=== PATIENT | male | born 1940 | race Caucasian/White ===

== ENCOUNTER → 2017-07-04 | Outpatient (CLI) | payer OTHER ==
[~2017-07-04] MED LIST: ACYCLOVIR 200200 MG PO; ALDACTONE25 MG; ALLOPURINOL 30300 M2 PO; AMARYL2 MG PO; ANALGESIC325 MG PO; ANTIVERT25 MG PO; ASACOL HD800 MG PO; ASACOL400 MG PO; CLARITIN10 MG PO; CLONAZEPAM 1 MG1 M1 PO; COLACE100 MG; DEMADEX20 MG PO; DIFFERIN45 G1 TP; FAMOTIDINE40 MG PO; FISH OIL500 M1 PO; FLONASE; FUROSEMIDE 20 M20 M1; GLUCOSAMINE &1 EACH PO; HYTRIN10 MG PO; JANUVIA100 MG PO; KLOR-CON 10 ER10 MEQ; KLOR-CON 1010 MEQ PO; LEVOXYL100 MCG PO; LISINOPRIL40 MG PO; MIRAPEX0.25 MG PO; MIRAPEX0.5 MG; MULTIVITAMINS1 EAC7; OMEPRAZOLE20 MG PO; OXYBUTYNIN 5 MG5 M2 PO; TOPROL XL200 MG PO; TRAMADOL 50 MG50 MG PO; TRAZODONE HCL100 MG PO; TRICOR145 MG PO; TRULICITY0.75 MG/0.; TYLENOL EX-STR500 M1 PO; VITAMIN D-32000 UNIT PO; VITAMIN D400 UNI1; ZOCOR 20 MG TAB20 M1 PO; ZOCOR20 MG PO; ZOLOFT100 MG PO; ZPAK PO
[2017-07-04 15:56] LABS: HEMATOCRIT 36.6 % (42.0-52.0); HEMOGLOBIN 12.3 gm/dL (14.0-18.0); MCH 33.2 pg (26.0-34.0); MCHC 33.6 g/dL (28.0-37.0); MCV 98.8 fL (80.0-100.0); RBC 3.7 mil/uL (4.50-6.00); RDW 15.8 % (10.5-14.5); WBC 6.9 thou/uL (4.0-11.0)
[2017-07-04 16:07] LABS: CALCIUM 9.1 mg/dL (8.5-10.1); CREATININE 2.1 mg/dL (0.7-1.3)
[2017-07-04 16:13] LABS: ALBUMIN 3.5 g/dL (3.4-5.0); TOTAL BILIRUBIN 0.3 mg/dL (<0.1-1.0); TOTAL PROTEIN 7.5 g/dL (6.4-8.2)
== END ==
LOC: LABMALL 15:22 → RAD 15:22
PROVIDERS: Internal Medicine Pulmonary Disease
DX: I51.7 Cardiomegaly (principal); J44.9 Chronic obstructive pulmonary disease, unspecified; J98.4 Other disorders of lung

== ENCOUNTER → 2017-07-06 | Outpatient (CLI) | payer OTHER | LOC: NUC 11:14 | DX: R07.9 Chest pain, unspecified (principal); R06.02 Shortness of breath; R06.00 Dyspnea, unspecified ==

== ENCOUNTER 2017-12-27 11:21 | Inpatient (IN) | payer OTHER ==
[~2017-12-27] VITALS: Ht 180.3 cm; Wt 145.1 kg
--- NOTE | ~2017-12-27 | HC ---
[facility] [place] [address] CONSULTATION Name: CHRISTIBEHZADHortencia Balderrama Room #: 416-P ADM IN M.R.#: [id number] Admission: 12/27/17 Attend Phys: Low Arnold DO Discharge: Date of : 38 Report #: [id number] THIS REPORT FOR: //name// CC: Low COLLADO INFECTIOUS DISEASES CONSULTATION REASON FOR CONSULTATION: Asked to evaluate concerning left lower extremity cellulitis. HISTORY OF PRESENT ILLNESS: The patient is a 77-year-old with underlying coronary artery disease, diabetes and venous stasis disease. He also has obstructive sleep apnea. He had been treated at the wound center for lower extremity venous stasis ulcers. Left side was worse than the right. Placed on doxycycline, but did not improve. He has been on diuretics, but still has not improved and was hospitalized for further treatment. No fever, chills or sweats. Increased pain in the left lower extremity. He has had no specific injury. He has underlying diabetes. ALLERGIES: MORPHINE AND CODEINE. MEDICATIONS: As noted on his MAR, now on vancomycin. Prior to his admission, he was on Asacol, Demadex, levothyroxine, clonazepam, Januvia, trazodone, allopurinol, Amaryl, potassium, Claritin, aspirin, TriCor, Hytrin, Zestril, Mirapex, Zoloft. PAST MEDICAL HISTORY: Hypertension, COPD, diabetes, coronary artery disease, vertebral disk disease, bilateral total knee arthroplasties, cataract surgery, hypothyroidism, restless legs syndrome, anxiety, colitis, emphysema, obstructive sleep apnea, liver abscess, tonsillectomy, hyperlipidemia. FAMILY HISTORY: Noncontributory. SOCIAL HISTORY: Past smoker and no significant alcohol intake. 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 REVIEW OF SYSTEMS: No cough or sputum production. No chest pain. No nausea, vomiting, diarrhea, dysuria or frequency. PHYSICAL EXAMINATION: VITAL SIGNS: Afebrile, hemodynamically stable. GENERAL: Alert, cooperative and pleasant, in no acute distress. Obese. HEENT: Unremarkable. CHEST: Clear. HEART: Regular, without murmur. ABDOMEN: Obese, soft, nontender, no hepatosplenomegaly or mass. [facility] [address] [place] [address] CONSULTATION Name: ROBBINLUCIOREMBERTOGIRISH WEAVER Room #: 416-P [facility] IN .R.#: [id number] Admission: 12/27/17 Attend Phys: Low Arnold DO Discharge: Date of : 38 Report #: [id number] EXTREMITIES: 2+ lower extremity edema with venous stasis changes along with erythema, pretibial skin ulcerations predominantly on the left leg. Serous drainage. Significant pretibial tenderness. Pulses adequate in his feet. NEUROLOGIC: Nonfocal. LABORATORY DATA: BNP 274. Sedimentation rate 29. Sodium 141, potassium 4.2, bicarb at 31, creatinine 2.3. Liver function test normal. Hemoglobin 12; platelet count 232,000; WBC 6.6; 68% segs; 12% lymphs. Chest x-ray, no acute change. IMPRESSION: A 77-year-old with venous stasis disease of both lower extremities, now with venous stasis dermatitis and ulcerations associated with secondary bacterial infection. Also, has chronic renal failure with a creatinine of 2.3. RECOMMENDATIONS: We will continue with cefazolin adjusted for his renal failure. Elevate along with mild compression. Continue with diuretics. Reevaluate wound in the a.m. <ELECTRONICALLY SIGNED> By: Pavel Trevino MD 12/28/17 1603 25 0014 Pavel Trevino MD /nt
--- NOTE | ~2017-12-27 | HC ---
[facility] [place] [address] CONSULTATION Name: CHRISTIGIRISH Tacos Room #: 416-P ADM IN M.R.#: [id number] Admission: 12/27/17 Attend Phys: Low Arnold DO Discharge: Date of : 38 Report #: [id number] THIS REPORT FOR: //name// CC: Low [facility] DATE OF SERVICE: 12/28/2017 CHIEF COMPLAINT: Ulceration and cellulitis of left lower extremity. HISTORY OF PRESENT ILLNESS: This is a 77-year-old male patient who I saw yesterday in the outpatient clinic. He developed a blister on his left pretibial region and then subsequent posterior ruptured, he developed redness and swelling more proximally on his lower leg, but then it began to extend to his left thigh. It was felt that the cellulitis was advancing despite having been started on other course of oral doxycycline and therefore was admitted for further evaluation and treatment. The patient states that he believes he has also had some weight gain over the last several months and feels that he may be as much as 100 pounds overweight. He feels that a lot of it may be fluid related. He is followed by Dr. Ventura from cardiology perspective. PAST MEDICAL HISTORY: Includes hypertension, bilateral knee replacements, coronary artery disease, restless legs syndrome, diabetes, hypercholesterolemia, and possibly some history of congestive heart failure. SOCIAL HISTORY: The patient denies alcohol use. He is a previous smoker, having quit sometime in the past. No drug use. MEDICATIONS: Include Asacol, Demadex, Levoxyl, clonazepam, Januvia, Trulicity, Zyloprim, trazodone, Amaryl, Klor-Con and Claritin, aspirin, TriCor, Hytrin, Zestril, Mirapex, Zoloft. ALLERGIES: TO MORPHINE AND CODEINE. FAMILY HISTORY: Noncontributory. REVIEW OF SYSTEMS: CONSTITUTIONAL: The patient denies fever or chills. He denies weight loss, but he states he has had about 100-pound weight gain over the past several months. ENT: The patient denies earache, nasal drainage or sore throat. EYES: The patient denies visual changes, redness or drainage. PULMONARY: The patient does complain of mild shortness of breath, but denies cough or hemoptysis. GASTROINTESTINAL: The patient denies nausea, vomiting, diarrhea or abdominal pain. ORTHOPEDIC: The patient does complain of pain in his left lower extremity and [address] [address] CONSULTATION Name: GIRISH BARRAZA Tacos Room #: 416-P [facility] IN ..#: [id number] Admission: 12/27/17 Attend Phys: Low Arnold DO Discharge: Date of : 38 Report #: [id number] left thigh. Other systems in a 14-point review of systems are negative. PHYSICAL EXAMINATION: VITAL SIGNS: At this time include pulse rate of 59, respiratory rate 16, blood pressure 155/69, temperature 99.5. GENERAL: This is a somewhat chronically ill-appearing male patient who appears to be in minimal distress. HEAD: Normocephalic. NOSE: Clear. NECK: Supple. LUNGS: Diminished. HEART: Regular rhythm. ABDOMEN: Obese, distended, nontender. EXTREMITIES: Lower extremities demonstrate venous type dermatitis with hyperpigmentation and hemosiderin deposits to both lower legs. He has a blister on the left pretibial area. This area is covered with moderate fibrin although is improved since yesterday. The redness that was above his knee is now below knee level, although still present, it is improved. NEUROLOGIC: The patient is alert and oriented and appropriate. LABORATORY DATA: Includes sodium 141, potassium 4.2, chloride 105, CO2 of 31, BUN 49, creatinine 2.3, glucose is 119, albumin is 3.2. White blood cell count 6.6, hemoglobin 12.1. Sed rate is 29. CLINICAL IMPRESSION: 1. Ulceration of the left pretibial region with a history of underlying venous insufficiency as well as a history of congestive heart failure. 2. Cellulitis, left lower extremity that is now improving. 3. Diabetes mellitus. 4. Mild protein-calorie malnutrition. RECOMMENDATIONS: At this point in time, we will continue with topical care. We will use topical Silvadene and lidocaine to the affected area with gentle compression with Kerlix and Salvador wrap. Try to elevate his legs whenever possible, although this is difficult for him. Appreciate Infectious Disease input and continue intravenous antibiotic therapy. We will continue all current medications. Recommend aggressive nutritional support to maximize wound healing. A culture has been obtained and results are pending from the open ulceration. <ELECTRONICALLY SIGNED> By: Alexandru Bryant MD 12/29/17 1454 1852 [id number] Alexandru Bryant MD /nt
[~2017-12-27 11:21] MED LIST changes: -ASACOL HD800 MG; -AUGMENTIN 875-1 EACH PO; -KEFLEX500 M1 PO
[2017-12-27 12:13] VITALS: BP 177/105
[2017-12-27] MEDS ORDERED: ASACOL HD800 MG (12:25)
[2017-12-27] MEDS ORDERED: DEMADEX20 MG PO (12:28)
[2017-12-27 13:14] LABS: ABSOLUTE NEUTROPHILS 4.5 thou/uL (1.4-8.2); BASOPHILS 1.6 % (0.0-2.0); EOSINOPHILS 8.1 % (0.0-3.0); HEMATOCRIT 37.1 % (42.0-52.0); HEMOGLOBIN 12.1 gm/dL (14.0-18.0); LYMPHOCYTES 12.7 % (24.0-44.0); MCHC 32.6 g/dL (28.0-37.0); MCV 101.1 fL (80.0-100.0); MONOCYTES 9.5 % (1.0-8.0); PLATELET COUNT 232 thou/uL (150-400); POLYS 68.1 % (36.0-66.0); RBC 3.67 mil/uL (4.50-6.00); RDW 15.7 % (10.5-14.5); WBC 6.6 thou/uL (4.0-11.0)
[2017-12-27 13:40] LABS: ALBUMIN 3.2 g/dL (3.4-5.0); ANION GAP 5 mmol/L (7-16); BUN 49 mg/dL (7-18); CALCIUM 9.6 mg/dL (8.5-10.1); CHLORIDE 105 mmol/L (98-107); CO2 31 mmol/L (21-32); CREATININE 2.3 mg/dL (0.7-1.3); GLUCOSE 119 mg/dL (74-106); MAGNESIUM 2.3 mg/dL (1.8-2.4); POTASSIUM 4.2 mmol/L (3.5-5.1); SGOT 16 U/L (15-37); SGPT 23 U/L (30-65); SODIUM 141 mmol/L (136-145); TOTAL BILIRUBIN 0.3 mg/dL (<0.1-1.0); TOTAL PROTEIN 7.1 g/dL (6.4-8.2); TROPONIN-I < 0.04 ng/mL (<0.06)
[2017-12-27 13:42] LABS: CHOLESTEROL 126 mg/dL (<200); HDL CHOLESTEROL 16 mg/dL (>40); LDL CHOLESTEROL 60 mg/dL (<100); TC:HDL 7.9 Ratio (Not establshd); TRIGLYCERIDE 251 mg/dL (<150); VLDL 50 mg/dL (<40)
[2017-12-27 14:05] LABS: FOLIC ACID 15.5 ng/mL (8.6-58.9); TSH 1.594 uIU/mL (0.358-3.740)
[2017-12-27 16:31] VITALS: BP 148/64
[2017-12-27 20:00] VITALS: BP 152/80
[2017-12-28 02:33] LABS: URINE BILIRUBIN NEGATIVE (Negative); URINE BLOOD NEGATIVE (Negative); URINE CLARITY CLEAR; URINE COLOR YELLOW; URINE GLUCOSE-RANDOM* NEGATIVE (Negative); URINE KETONES NEGATIVE (Negative); URINE LEUKOCYTES-REFLEX NEGATIVE (Negative); URINE NITRITE-REFLEX NEGATIVE (Negative); URINE PROTEIN (DIPSTICK) 1+ (Negative); URINE UROBILINOGEN 0.2 E.U./dl (0.2-1.0)
[2017-12-28 03:30] LABS: CASTS None Seen /LPF (None Seen); SQUAMOUS 0-3 Few /LPF (0-3)
[2017-12-28 03:31] LABS: BACTERIA-REFLEX None Seen /HPF (None Seen); CRYSTALS None Seen /LPF (None Seen); URINE RBC 0-2 Rare /HPF (0-2); URINE WBC-REFLEX 0-5 Rare /HPF (0-5)
[2017-12-28 04:00] VITALS: BP 144/70
[2017-12-28 07:33] VITALS: BP 155/69
[2017-12-28 16:28] VITALS: BP 159/71
[2017-12-28 19:25] VITALS: BP 155/72
[2017-12-29 04:00] VITALS: BP 136/95
[2017-12-29 04:30] LABS: ABSOLUTE NEUTROPHILS 4.2 thou/uL (1.4-8.2); BASOPHILS 1.2 % (0.0-2.0); EOSINOPHILS 9.3 % (0.0-3.0); HEMATOCRIT 35.2 % (42.0-52.0); HEMOGLOBIN 11.4 gm/dL (14.0-18.0); LYMPHOCYTES 14.1 % (24.0-44.0); MCH 33.3 pg (26.0-34.0); MCHC 32.6 g/dL (28.0-37.0); MCV 102.3 fL (80.0-100.0); MONOCYTES 9.5 % (1.0-8.0); PLATELET COUNT 228 thou/uL (150-400); POLYS 65.9 % (36.0-66.0); RBC 3.44 mil/uL (4.50-6.00); WBC 6.4 thou/uL (4.0-11.0)
[2017-12-29 04:40] LABS: CALCIUM 9.2 mg/dL (8.5-10.1); CREATININE 2.1 mg/dL (0.7-1.3)
[2017-12-29 07:47] VITALS: BP 125/71
[2017-12-29 16:00] VITALS: BP 141/47
[2017-12-29 20:00] VITALS: BP 147/64
[2017-12-30 03:46] LABS: ABSOLUTE NEUTROPHILS 4.7 thou/uL (1.4-8.2); BASOPHILS 1.3 % (0.0-2.0); EOSINOPHILS 7.7 % (0.0-3.0); HEMATOCRIT 37.3 % (42.0-52.0); HEMOGLOBIN 12.4 gm/dL (14.0-18.0); LYMPHOCYTES 15.9 % (24.0-44.0); MCH 33.2 pg (26.0-34.0); MCHC 33.3 g/dL (28.0-37.0); MONOCYTES 9.2 % (1.0-8.0); PLATELET COUNT 226 thou/uL (150-400); POLYS 65.9 % (36.0-66.0); RBC 3.73 mil/uL (4.50-6.00); RDW 15.7 % (10.5-14.5); WBC 7.2 thou/uL (4.0-11.0)
[2017-12-30 03:55] LABS: CALCIUM 9.4 mg/dL (8.5-10.1); POTASSIUM 4.3 mmol/L (3.5-5.1)
[2017-12-30 04:00] VITALS: BP 143/71
[2017-12-30 08:27] VITALS: BP 119/76
[2017-12-30 16:34] VITALS: BP 130/79
[2017-12-30 19:45] VITALS: BP 138/69
[2017-12-31 04:00] VITALS: BP 126/50
[2017-12-31 04:30] LABS: HEMATOCRIT 35.7 % (42.0-52.0); HEMOGLOBIN 11.8 gm/dL (14.0-18.0); MCH 33.2 pg (26.0-34.0); MCHC 33.1 g/dL (28.0-37.0); MCV 100.2 fL (80.0-100.0); RBC 3.56 mil/uL (4.50-6.00); RDW 16.1 % (10.5-14.5); WBC 7.5 thou/uL (4.0-11.0)
[2017-12-31 04:46] LABS: CALCIUM 9.7 mg/dL (8.5-10.1); CREATININE 2.3 mg/dL (0.7-1.3); POTASSIUM 4.2 mmol/L (3.5-5.1)
[2017-12-31 09:20] VITALS: BP 119/60
[2017-12-31] MEDS ORDERED: KEFLEX500 M1 PO (11:21)
[2017-12-31 12:29] VITALS: BP 119/60
[2017-12-31 15:56] VITALS: BP 119/60
[2018-01-16] MEDS ORDERED: AUGMENTIN 875-1 EACH PO (15:19)
== END 2017-12-31 17:40 | disposition home health service (06) | DRG 602 ==
LOC: 4N 11:21
PROVIDERS: Family Medicine; Hospitalist; Nurse Practitioner
DX: L03.116 Cellulitis of left lower limb (principal); J96.20 Acute and chronic respiratory failure, unspecified whether with hypoxia or hypercapnia; N18.4 Chronic kidney disease, stage 4 (severe); L97.829 Non-pressure chronic ulcer of other part of left lower leg with unspecified severity; E44.1 Mild protein-calorie malnutrition; Z68.41 Body mass index [BMI] 40.0-44.9, adult; I13.0 Hypertensive heart and chronic kidney disease with heart failure and stage 1 through stage 4 chronic kidney disease, or unspecified chronic kidney disease; J44.9 Chronic obstructive pulmonary disease, unspecified; I25.10 Atherosclerotic heart disease of native coronary artery without angina pectoris; Z96.653 Presence of artificial knee joint, bilateral; F41.9 Anxiety disorder, unspecified; G47.33 Obstructive sleep apnea (adult) (pediatric); E78.5 Hyperlipidemia, unspecified; I87.2 Venous insufficiency (chronic) (peripheral); G25.81 Restless legs syndrome; E78.00 Pure hypercholesterolemia, unspecified; I50.9 Heart failure, unspecified; K58.9 Irritable bowel syndrome, unspecified; E11.22 Type 2 diabetes mellitus with diabetic chronic kidney disease; Z66 Do not resuscitate; Z79.82 Long term (current) use of aspirin; Z88.6 Allergy status to analgesic agent; Z98.49 Cataract extraction status, unspecified eye; Z87.891 Personal history of nicotine dependence; Z95.5 Presence of coronary angioplasty implant and graft; Z79.899 Other long term (current) drug therapy
CPT/HCPCS: 10790

== ENCOUNTER → 2017-12-27 | Outpatient (CLI) | payer OTHER ==
[~2017-12-27] MED LIST changes: +ASACOL HD800 MG; +AUGMENTIN 875-1 EACH PO; +KEFLEX500 M1 PO
== END ==
LOC: HYPER 06:48
DX: I87.333 Chronic venous hypertension (idiopathic) with ulcer and inflammation of bilateral lower extremity (principal); L97.811 Non-pressure chronic ulcer of other part of right lower leg limited to breakdown of skin; L97.821 Non-pressure chronic ulcer of other part of left lower leg limited to breakdown of skin; I25.84 Coronary atherosclerosis due to calcified coronary lesion; J44.9 Chronic obstructive pulmonary disease, unspecified; I25.10 Atherosclerotic heart disease of native coronary artery without angina pectoris; Z95.0 Presence of cardiac pacemaker; Z87.891 Personal history of nicotine dependence; Z72.89 Other problems related to lifestyle; E66.01 Morbid (severe) obesity due to excess calories; Z68.41 Body mass index [BMI] 40.0-44.9, adult

== ENCOUNTER → 2018-01-09 | Outpatient (CLI) | payer OTHER ==
[~2018-01-09] MED LIST changes: +ASACOL HD800 MG; +AUGMENTIN 875-1 EACH PO; +KEFLEX500 M1 PO
== END ==
LOC: HYPER 06:51
DX: I87.333 Chronic venous hypertension (idiopathic) with ulcer and inflammation of bilateral lower extremity (principal); L97.811 Non-pressure chronic ulcer of other part of right lower leg limited to breakdown of skin; L97.821 Non-pressure chronic ulcer of other part of left lower leg limited to breakdown of skin; E66.01 Morbid (severe) obesity due to excess calories; I25.84 Coronary atherosclerosis due to calcified coronary lesion; R60.0 Localized edema; J44.9 Chronic obstructive pulmonary disease, unspecified; I25.10 Atherosclerotic heart disease of native coronary artery without angina pectoris; Z95.0 Presence of cardiac pacemaker; Z87.891 Personal history of nicotine dependence; Z72.89 Other problems related to lifestyle

== ENCOUNTER 2018-01-19 09:13 | Emergency (ER) | payer OTHER ==
[~2018-01-19] VITALS: Ht 182.9 cm; Wt 141.1 kg
--- NOTE | ~2018-01-19 | EKG ---
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
[2018-01-19 09:31] LABS: ABSOLUTE NEUTROPHILS 5.4 thou/uL (1.4-8.2); BASOPHILS 1.2 % (0.0-2.0); EOSINOPHILS 8.4 % (0.0-3.0); HEMATOCRIT 36.1 % (42.0-52.0); HEMOGLOBIN 12.1 gm/dL (14.0-18.0); LYMPHOCYTES 11.6 % (24.0-44.0); MCH 33.3 pg (26.0-34.0); MCHC 33.5 g/dL (28.0-37.0); MCV 99.4 fL (80.0-100.0); MONOCYTES 10.4 % (1.0-8.0); PLATELET COUNT 271 thou/uL (150-400); POLYS 68.4 % (36.0-66.0); RBC 3.63 mil/uL (4.50-6.00); RDW 15.3 % (10.5-14.5); WBC 7.9 thou/uL (4.0-11.0)
[2018-01-19 09:35] LABS: ANION GAP 6 mmol/L (7-16); BUN 29 mg/dL (7-18); CALCIUM 9.5 mg/dL (8.5-10.1); CHLORIDE 108 mmol/L (98-107); CO2 26 mmol/L (21-32); CREATININE 1.6 mg/dL (0.7-1.3); GLUCOSE 133 mg/dL (74-106); POTASSIUM 4.7 mmol/L (3.5-5.1); SODIUM 140 mmol/L (136-145)
[2018-01-19 09:38] LABS: BE(vivo) -1.7 mmol/L (-2 to +3); PCO2 38.7 mmHg (35.0-45.0); PO2 70.9 mmHg (80.0-100.0); pH 7.391 (7.360-7.450); sO2 94.2 % (92.0-98.0)
[2018-01-19 09:43] LABS: TROPONIN-I < 0.04 ng/mL (<0.06)
== END 2018-01-19 11:43 | disposition home or self-care (01) ==
LOC: ER 09:13
PROVIDERS: Emergency Medicine
DX: R06.00 Dyspnea, unspecified (principal); F41.9 Anxiety disorder, unspecified; I13.0 Hypertensive heart and chronic kidney disease with heart failure and stage 1 through stage 4 chronic kidney disease, or unspecified chronic kidney disease; I50.9 Heart failure, unspecified; E03.9 Hypothyroidism, unspecified; G25.81 Restless legs syndrome; G47.33 Obstructive sleep apnea (adult) (pediatric); J44.9 Chronic obstructive pulmonary disease, unspecified; E11.22 Type 2 diabetes mellitus with diabetic chronic kidney disease; N18.4 Chronic kidney disease, stage 4 (severe); E78.00 Pure hypercholesterolemia, unspecified; M10.9 Gout, unspecified; Z88.5 Allergy status to narcotic agent; Z96.653 Presence of artificial knee joint, bilateral; Z90.89 Acquired absence of other organs; Z87.891 Personal history of nicotine dependence

== ENCOUNTER → 2018-01-24 | Outpatient (CLI) | payer OTHER | LOC: HYPER 07:05 | DX: I87.333 Chronic venous hypertension (idiopathic) with ulcer and inflammation of bilateral lower extremity (principal); L97.811 Non-pressure chronic ulcer of other part of right lower leg limited to breakdown of skin; L97.821 Non-pressure chronic ulcer of other part of left lower leg limited to breakdown of skin; Z68.41 Body mass index [BMI] 40.0-44.9, adult; I25.84 Coronary atherosclerosis due to calcified coronary lesion; R60.0 Localized edema; J44.9 Chronic obstructive pulmonary disease, unspecified; I25.10 Atherosclerotic heart disease of native coronary artery without angina pectoris; Z95.0 Presence of cardiac pacemaker; Z87.891 Personal history of nicotine dependence ==

== ENCOUNTER → 2018-03-12 | Outpatient (CLI) | payer OTHER | LOC: HYPER 06:45 | DX: I87.323 Chronic venous hypertension (idiopathic) with inflammation of bilateral lower extremity (principal); L97.811 Non-pressure chronic ulcer of other part of right lower leg limited to breakdown of skin; L97.821 Non-pressure chronic ulcer of other part of left lower leg limited to breakdown of skin; R60.0 Localized edema; I25.84 Coronary atherosclerosis due to calcified coronary lesion; J44.9 Chronic obstructive pulmonary disease, unspecified; E66.01 Morbid (severe) obesity due to excess calories; Z68.41 Body mass index [BMI] 40.0-44.9, adult; Z87.891 Personal history of nicotine dependence ==

== ENCOUNTER → 2018-08-06 | Outpatient (CLI) | payer OTHER | LOC: HYPER 07:00 | DX: I87.332 Chronic venous hypertension (idiopathic) with ulcer and inflammation of left lower extremity (principal); L97.821 Non-pressure chronic ulcer of other part of left lower leg limited to breakdown of skin; I25.10 Atherosclerotic heart disease of native coronary artery without angina pectoris; J44.9 Chronic obstructive pulmonary disease, unspecified; F41.9 Anxiety disorder, unspecified; F32.9 Major depressive disorder, single episode, unspecified; Z96.653 Presence of artificial knee joint, bilateral; Z95.0 Presence of cardiac pacemaker; Z87.891 Personal history of nicotine dependence ==

== ENCOUNTER → 2018-08-20 | Outpatient (CLI) | payer OTHER | LOC: HYPER 06:53 | DX: I87.332 Chronic venous hypertension (idiopathic) with ulcer and inflammation of left lower extremity (principal); L97.821 Non-pressure chronic ulcer of other part of left lower leg limited to breakdown of skin; I25.10 Atherosclerotic heart disease of native coronary artery without angina pectoris; J44.9 Chronic obstructive pulmonary disease, unspecified; K21.9 Gastro-esophageal reflux disease without esophagitis; M10.9 Gout, unspecified; F41.9 Anxiety disorder, unspecified; F32.9 Major depressive disorder, single episode, unspecified; Z87.891 Personal history of nicotine dependence; Z96.653 Presence of artificial knee joint, bilateral; Z98.41 Cataract extraction status, right eye; Z98.42 Cataract extraction status, left eye; Z95.0 Presence of cardiac pacemaker ==

== ENCOUNTER → 2018-09-03 | Outpatient (CLI) | payer OTHER | LOC: HYPER 07:34 | DX: I87.332 Chronic venous hypertension (idiopathic) with ulcer and inflammation of left lower extremity (principal); L97.821 Non-pressure chronic ulcer of other part of left lower leg limited to breakdown of skin; I25.10 Atherosclerotic heart disease of native coronary artery without angina pectoris; J44.9 Chronic obstructive pulmonary disease, unspecified; K21.9 Gastro-esophageal reflux disease without esophagitis; M10.9 Gout, unspecified; F41.9 Anxiety disorder, unspecified; F32.9 Major depressive disorder, single episode, unspecified; Z87.891 Personal history of nicotine dependence; Z96.653 Presence of artificial knee joint, bilateral; Z95.5 Presence of coronary angioplasty implant and graft; Z98.41 Cataract extraction status, right eye; Z98.42 Cataract extraction status, left eye; Z95.0 Presence of cardiac pacemaker ==

== ENCOUNTER → 2018-11-27 | Outpatient (CLI) | payer OTHER | LOC: RAD 14:30 | DX: J44.9 Chronic obstructive pulmonary disease, unspecified (principal); I51.7 Cardiomegaly; J98.4 Other disorders of lung ==

== ENCOUNTER → 2018-12-05 | Outpatient (CLI) | payer OTHER | LOC: HYPER 06:57 | DX: L97.812 Non-pressure chronic ulcer of other part of right lower leg with fat layer exposed (principal); I87.2 Venous insufficiency (chronic) (peripheral); I25.10 Atherosclerotic heart disease of native coronary artery without angina pectoris; J44.9 Chronic obstructive pulmonary disease, unspecified; K21.9 Gastro-esophageal reflux disease without esophagitis; M10.9 Gout, unspecified; F41.9 Anxiety disorder, unspecified; F32.9 Major depressive disorder, single episode, unspecified; Z87.891 Personal history of nicotine dependence; Z96.653 Presence of artificial knee joint, bilateral; Z95.5 Presence of coronary angioplasty implant and graft; Z98.41 Cataract extraction status, right eye; Z98.42 Cataract extraction status, left eye; Z95.0 Presence of cardiac pacemaker ==

== ENCOUNTER → 2018-12-20 | Outpatient (CLI) | payer OTHER | LOC: HYPER 12-11 07:01 | DX: L97.812 Non-pressure chronic ulcer of other part of right lower leg with fat layer exposed (principal); I87.2 Venous insufficiency (chronic) (peripheral); I25.10 Atherosclerotic heart disease of native coronary artery without angina pectoris; J44.9 Chronic obstructive pulmonary disease, unspecified; K21.9 Gastro-esophageal reflux disease without esophagitis; M10.9 Gout, unspecified; F41.9 Anxiety disorder, unspecified; F32.9 Major depressive disorder, single episode, unspecified; Z87.891 Personal history of nicotine dependence; Z96.653 Presence of artificial knee joint, bilateral; Z95.5 Presence of coronary angioplasty implant and graft; Z98.41 Cataract extraction status, right eye; Z98.42 Cataract extraction status, left eye; Z95.0 Presence of cardiac pacemaker ==

== ENCOUNTER 2019-01-09 09:22 | Emergency (ER) | payer OTHER ==
[~2019-01-09] VITALS: Ht 182.9 cm; Wt 139.3 kg
[~2019-01-09 09:22] MED LIST changes: -ALLOPURINOL 30300 M2 PO; -ANALGESIC325 MG PO; +ASPIR-TRIN325 MG PO; +HYTRIN 2MG CAPSU2 MG PO; -HYTRIN10 MG PO; +ZYLOPRIM300 MG
[2019-01-09] MEDS ORDERED: PEPCID AC10 MG PO (09:54)
[2019-01-09] MEDS ORDERED: FISH OIL 1,001000 M2 PO (09:55)
[2019-01-09] MEDS ORDERED: CANASA1000 MG PO (09:55)
[2019-01-09] MEDS ORDERED: KLOR-CON 1010 MEQ PO (09:56)
[2019-01-09] MEDS ORDERED: ASACOL HD800 MG PO (09:57)
[2019-01-09] MEDS ORDERED: OXYBUTYNIN 5 MG5 M2 PO (09:58)
[2019-01-09 10:36] LABS: ABSOLUTE NEUTROPHILS 5.3 thou/uL (1.4-8.2); BASOPHILS 0.7 % (0.0-2.0); EOSINOPHILS 7.5 % (0.0-3.0); HEMOGLOBIN 11.3 gm/dL (14.0-18.0); LYMPHOCYTES 10.6 % (24.0-44.0); MCH 33.9 pg (26.0-34.0); MCHC 33.2 g/dL (28.0-37.0); MCV 101.9 fL (80.0-100.0); PLATELET COUNT 221 thou/uL (150-400); POLYS 72.2 % (36.0-66.0); RBC 3.34 mil/uL (4.50-6.00); RDW 15.4 % (10.5-14.5); WBC 7.3 thou/uL (4.0-11.0)
[2019-01-09 10:49] LABS: CALCIUM 9.8 mg/dL (8.5-10.1); CREATININE 3.9 mg/dL (0.7-1.3); POTASSIUM 4.5 mmol/L (3.5-5.1)
[2019-01-09 10:54] LABS: TOTAL BILIRUBIN 0.2 mg/dL (<0.1-1.0); TOTAL PROTEIN 7.4 g/dL (6.4-8.2)
[2019-01-09 12:35] VITALS: BP 151/64
== END 2019-01-09 12:30 | disposition home or self-care (01) ==
LOC: ER 09:22
PROVIDERS: Nurse Practitioner Family
DX: S81.801A Unspecified open wound, right lower leg, initial encounter (principal); I13.0 Hypertensive heart and chronic kidney disease with heart failure and stage 1 through stage 4 chronic kidney disease, or unspecified chronic kidney disease; E11.22 Type 2 diabetes mellitus with diabetic chronic kidney disease; N18.4 Chronic kidney disease, stage 4 (severe); I50.9 Heart failure, unspecified; I87.8 Other specified disorders of veins; E03.9 Hypothyroidism, unspecified; G25.81 Restless legs syndrome; F41.9 Anxiety disorder, unspecified; G47.33 Obstructive sleep apnea (adult) (pediatric); J44.9 Chronic obstructive pulmonary disease, unspecified; E78.00 Pure hypercholesterolemia, unspecified; M10.9 Gout, unspecified; Z95.5 Presence of coronary angioplasty implant and graft; X58.XXXA Exposure to other specified factors, initial encounter; Y93.89 Activity, other specified; Y92.89 Other specified places as the place of occurrence of the external cause; Y99.8 Other external cause status

== ENCOUNTER → 2019-01-24 | Outpatient (CLI) | payer OTHER ==
[~2019-01-24] MED LIST changes: +CANASA1000 MG PO; +FISH OIL 1,001000 M2 PO; +PEPCID AC10 MG PO
== END ==
LOC: HYPER 08:03
DX: L97.812 Non-pressure chronic ulcer of other part of right lower leg with fat layer exposed (principal); I87.2 Venous insufficiency (chronic) (peripheral); R60.1 Generalized edema; I25.10 Atherosclerotic heart disease of native coronary artery without angina pectoris; J44.9 Chronic obstructive pulmonary disease, unspecified; M10.9 Gout, unspecified; Z87.891 Personal history of nicotine dependence

== ENCOUNTER → 2019-02-12 | Outpatient (CLI) | payer OTHER | LOC: HYPER 06:38 | DX: L97.812 Non-pressure chronic ulcer of other part of right lower leg with fat layer exposed (principal); I87.2 Venous insufficiency (chronic) (peripheral); R60.1 Generalized edema; I25.10 Atherosclerotic heart disease of native coronary artery without angina pectoris; I89.0 Lymphedema, not elsewhere classified; M10.9 Gout, unspecified; J44.9 Chronic obstructive pulmonary disease, unspecified; K21.9 Gastro-esophageal reflux disease without esophagitis; F41.9 Anxiety disorder, unspecified; F32.9 Major depressive disorder, single episode, unspecified; Z87.891 Personal history of nicotine dependence; Z96.653 Presence of artificial knee joint, bilateral; Z95.5 Presence of coronary angioplasty implant and graft; Z98.41 Cataract extraction status, right eye; Z98.42 Cataract extraction status, left eye; Z95.0 Presence of cardiac pacemaker ==

== ENCOUNTER 2019-02-26 15:41 | Inpatient (IN) | payer OTHER ==
[~2019-02-26] VITALS: Ht 182.9 cm; Wt 148.3 kg
[2019-02-26 16:36] VITALS: BP 153/78
--- NOTE | 2019-02-26 17:11 | NUR ---
ADM PT CAME IN FROM WOUND CLINIC. PT ORIENTED TO ROOM. LAC IV. ADM ORDERS CARRIED OUT.
[2019-02-26 18:13] LABS: ABSOLUTE NEUTROPHILS 4.7 thou/uL (1.4-8.2); BASOPHILS 0.8 % (0.0-2.0); EOSINOPHILS 5.9 % (0.0-3.0); HEMATOCRIT 31.8 % (42.0-52.0); HEMOGLOBIN 10.5 gm/dL (14.0-18.0); LYMPHOCYTES 11.6 % (24.0-44.0); MCH 33.6 pg (26.0-34.0); MCHC 32.9 g/dL (28.0-37.0); MCV 101.8 fL (80.0-100.0); MONOCYTES 10.4 % (1.0-8.0); PLATELET COUNT 210 thou/uL (150-400); POLYS 71.3 % (36.0-66.0); RBC 3.12 mil/uL (4.50-6.00); RDW 16.4 % (10.5-14.5); WBC 6.6 thou/uL (4.0-11.0)
[2019-02-26 18:29] LABS: ALBUMIN 2.9 g/dL (3.4-5.0); CALCIUM 9.5 mg/dL (8.5-10.1); CREATININE 2.6 mg/dL (0.7-1.3); MAGNESIUM 2.2 mg/dL (1.8-2.4); POTASSIUM 4.6 mmol/L (3.5-5.1); TOTAL BILIRUBIN 0.4 mg/dL (<0.1-1.0); TOTAL PROTEIN 6.9 g/dL (6.4-8.2)
[2019-02-26 20:05] VITALS: BP 132/61
[2019-02-27 04:09] VITALS: BP 122/55
[2019-02-27 05:39] LABS: ABSOLUTE NEUTROPHILS 4.6 thou/uL (1.4-8.2); HEMATOCRIT 30.4 % (42.0-52.0); HEMOGLOBIN 9.9 gm/dL (14.0-18.0); LYMPHOCYTES 13.2 % (24.0-44.0); MCH 33.7 pg (26.0-34.0); MCHC 32.5 g/dL (28.0-37.0); MCV 103.6 fL (80.0-100.0); MONOCYTES 8.5 % (1.0-8.0); PLATELET COUNT 218 thou/uL (150-400); POLYS 70.3 % (36.0-66.0); RBC 2.93 mil/uL (4.50-6.00); RDW 16.5 % (10.5-14.5); WBC 6.5 thou/uL (4.0-11.0)
[2019-02-27 05:51] LABS: CALCIUM 9.3 mg/dL (8.5-10.1); CREATININE 2.6 mg/dL (0.7-1.3); MAGNESIUM 2.2 mg/dL (1.8-2.4); POTASSIUM 4.3 mmol/L (3.5-5.1)
[2019-02-27 07:11] VITALS: BP 150/79
--- NOTE | 2019-02-27 07:38 | NUR ---
Assumed care at 1845. Pt resting in bed. AOX4. IV right AC saline lock. left leg wrapped with kerlix. +2 pitting edema on both legs. Waiting for vanc trough in the am and OT consult. No identified needs at the moment. Will continue to monitor.
--- NOTE | 2019-02-27 09:14 | NUR ---
OK PER DR FRYE FOR PATIENT TO BE TRANSFERRED TO [facility].
--- NOTE | 2019-02-27 09:43 | NUR ---
Nutrition: Pt admitted with BLE cellulitis. Seen for consult due to overweight. BMI 44.3=class III obesity. Hx of CHF, DM. Follows regular diet at home. States appetite is good with 75-100% intake. UBW 315, current 327 lbs. Gainned 100 lbs after passing 3 years ago. Reports losing 17 lbs x2 weeks due to change in medication. Now gained wt back. Snacks throughout night, stated is going to try the keto diet once d/c. Discussed healthy eating patterns, strategies to change habits. Offered education, pt denied. Will remain available if pt would like information. Low nutrition risk.
--- NOTE | 2019-02-27 11:20 | NUR ---
ORDERS RECEIVED, CHART REVIEWED. WOUND CARE HAS BEEN ORDERED FOR Pt. WILL WAIT FOR WOUND CARE TO SEE Pt AND PROVIDED INSTRUCTION ON CARE. THANK YOU.
[2019-02-27 15:15] VITALS: BP 168/90
--- NOTE | 2019-02-27 15:39 | NUR ---
WOUND CONSULT: PT. WAS SEEN TODAY BY DR. JOLLEY AND MYSELF. PT. HAS EDEMA TO BILATERAL EXTREMITYS IN ASSOICATED WITH LYMPEDEMA. PT. ALSO HAS BILATERAL LOWER EXTREMITY CELLULITIS. WE WILL HOLD ON COMPRESSION AT THIS TIME UNTIL CELLULITIS STARTS TO RESLOVE. RECOMMENDATIONS: AMMONIUM LACTATE LOTION DAILY AND ELEVATION PT. AND STAFF NURSE WERE INSTRUCTED ON PLAN OF CARE.
--- NOTE | 2019-02-27 16:34 | NUR ---
PT ADMITTED RELATED TO BLE CELLULITIS. CM REVIEWED CHART AND SPOKE WITH CARE TEAM. CM MET WITH PT AT BEDSIDE THIS DAY. PT IS A&O X4. CM ROLE INTRODUCED. PT INDICATED HE LIVES IN A HOUSE ALONE WITH 2 STEPS TO ENTER AND A STAIR GLIDE TO THE BASEMENT. 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 PT INDICATED HE HAS CAREGIVERS THROUGH THER MA 5 DAYS A WEEK FOR 8HRS AND SUNDAY AND SUNDAY FOR 4HRS. [facility] BATHING TUESDAYS AND WEDNESDAYS AND HE HAS A NURSE FOR LYMPHADEMA. PT HAS A TRILOGY FOR HOME USE. PT INDICATED HE PLANS TO RETURN HOME ONCE MEDICALLY STABLE. CM TO FOLLOW INDICATED WITH DC PLANNING.
[2019-02-27 18:01] VITALS: BP 161/84
--- NOTE | 2019-02-27 20:03 | NUR ---
PT DISCHARGED TO [facility]. PT A&OX4, VSS, AND DENIED PAIN. PT HAD XRAY PROCEDURE DONE TODAY. ALL BELONGINGS AND ELECTRIC WHEELCHAIR WITH PT.
[2019-02-27 20:33] VITALS: BP 161/84
--- NOTE | 2019-02-28 02:15 | NUR ---
Assumed pt. care at 1900. Pt. remains A&Ox3; swallows meds whole w/o difficulty. Remains cont. B&B; ambulates to bathroom independently w/ steady gait. Blood sugars WNL. 02 intact at 2LNC. Remains on IVABT/Cellulitis to BLEs. LAC SL infusing ABT/flushed w/o difficulty. 1+ edema noted to BLEs. BLEs appear dry, red and scaly. 2 DRSGs noted to LLE; both remain C/D/I, at this time. TX to BLEs, as ordered, w/o difficulty. Pace maker noted to L chest wall. Remains WBAT. Refusd CPaP at HS. Motorized w/c in room. Pt. has no c/o pain or discomfort. No s/s of acute distress noted. PT up to recliner chair w/ BLEs elevated, as tolerated. Call light/desired belongings within reach. PO fluids encouraged. Will continue to monitor.
[2019-02-28 06:46] LABS: ALBUMIN 2.7 g/dL (3.4-5.0); CALCIUM 9.2 mg/dL (8.5-10.1); CREATININE 2.6 mg/dL (0.7-1.3); PHOSPHORUS 3.9 mg/dL (2.5-4.9); POTASSIUM 4.4 mmol/L (3.5-5.1)
[2019-02-28 08:45] VITALS: BP 163/87
--- NOTE | 2019-02-28 12:50 | NUR ---
WOUND FOLLOW UP: PT. WAS SEEN TODAY BY DR. JOLLEY AND MYSELF. PT. CELLULITIS IS BETTER TODAY BUT, PT. IS STILL NOT READY FOR COMPRESSION WRAPS AT THIS TIME. RECOMMENDATIONS: CONTINUE WITH CURRENT PLAN OF CARE. PT. AND STAFF NURSE WERE INSTRUCTED ON PLAN OF CARE.
--- NOTE | 2019-02-28 12:57 | NUR ---
AKOSUA reviewed chart and spoke with nursing and attending physician. Pt was [facility] from and is progressing towards goals for discharge. AKOSUA notified that pt is currently on service with [facility] for home health. Discharge plan is for pt to return home and resume services and in-home care provided by the ID. Final discharge orders will need to be faxed to [facility] when available. Contact info for [facility] placed in pt's discharge summary. AKOSUA is available to assist as needed with discharge planning. [facility]--
[2019-02-28 13:01] VITALS: BP 161/84
--- NOTE | 2019-02-28 14:28 | HC ---
[facility] [place] [address] CONSULTATION Name: CHRISTIGIRISH J Room #: 227-P ADM IN M.R.#: [id number] Admission: 02/26/19 ������������������ Attend Phys: Aisha Mathews MD Discharge: ������������������ Date of : 38 Report #: [id number] THIS REPORT FOR: //name// CC: Aisha [facility] DATE OF SERVICE: 02/27/2019 CHIEF COMPLAINT: Cellulitis, lower extremities. HISTORY OF PRESENT ILLNESS: This is an 78-year-old patient with whom I am familiar, who was admitted through the wound clinic with increasing redness, drainage and swelling to his left lower extremity. He denies significant pain and does not feel particularly bad at this time. He is able to keep his legs elevated here. He denies any chest pain or shortness of breath. PAST MEDICAL HISTORY: The patient's past history is positive for history of hypertension, congestive heart failure, diabetes mellitus, lower extremity edema, hypothyroidism, chronic kidney disease and obstructive sleep apnea. ALLERGIES: MORPHINE AND CODEINE. MEDICATIONS: Include Levoxyl, Trulicity, trazodone, aspirin, TriCor, Hytrin, clonazepam, Mirapex, Zoloft, Januvia, Zyloprim, Amaryl, Demadex, Pepcid, fish oil, Canasa, Klor-Con, Asacol and oxybutynin. SOCIAL HISTORY: The patient currently denies alcohol use and is a previous smoker of one pack per day. FAMILY HISTORY: Noncontributory. REVIEW OF SYSTEMS: CONSTITUTIONAL: The patient denies fever, chills or weight loss. NEUROLOGICAL: The patient denies focal weakness, numbness or tingling. EYES: The patient denies visual changes, redness or drainage. ENT: The patient denies earache, nasal drainage or sore throat. CARDIOVASCULAR: The patient denies chest pain, palpitation or diaphoresis. PULMONARY: The patient denies cough or shortness of breath. GASTROINTESTINAL: The patient denies nausea, vomiting, diarrhea or abdominal pain. ORTHOPEDIC: The patient complains of pains and swelling of the lower extremities. Other systems in a 14-point review of systems are negative. PHYSICAL EXAMINATION: VITAL SIGNS: The patient's vital signs at this time include temperature 37.0, [facility] [address] [place] [address] CONSULTATION Name: ROBBINJAKEGIRISH WEAVER Room #: 227-P [facility] IN [facility].#: [id number] Admission: 02/26/19 ������������������ Attend Phys: Aisha Mathews MD Discharge: ������������������ Date of : 38 Report #: [id number] pulse 79, respiratory rate 18 and blood pressure 168/90. GENERAL: This is a chronically ill-appearing male patient who appears to be in minimal distress. HEENT: Head is normocephalic. Nose and throat clear. NECK: Supple. LUNGS: Clear. ABDOMEN: Soft. Bowel sounds present. EXTREMITIES: Lower extremities demonstrate 3+ edema. He has significant warmth, redness and swelling of the left lower extremity, some chronic venous stasis dermatitis changes on the right lower extremity. NEUROLOGIC: The patient is alert, oriented and appropriate. LABORATORY DATA: Sodium 142, potassium 4.6, chloride 105, BUN 60 and creatinine 2.6. White blood cell count 6.6 with hemoglobin of 10.5 and hematocrit 31.8. CLINICAL IMPRESSION: 1. Cellulitis, left lower extremity. 2. Lymphedema, bilateral lower extremities. 3. Venous stasis dermatitis, bilateral lower extremities. 4. Obstructive sleep apnea. 5. Acute on chronic renal insufficiency. RECOMMENDATIONS: At this point in time, we will recommend elevation of the legs to control swelling. He will need some compression, but with the cellulitis as significant as it is, I think we run the risk of making it worse with extremity compression. We will recommend AmLactin lotion to the lower extremities bilaterally. Recommend empiric antibiotic therapy, pending cultures. We have obtained a culture and sensitivity from the lateral left lower leg. He will need aggressive nutritional support and continuation of current medications. I appreciate being asked to see the patient in consultation. ��������������������������������������������� <ELECTRONICALLY SIGNED> ���������������������������������������� By: Alexandru Bryant MD ��������������������������������������������� 02/28/19 1428 1851 1239 Alexandru Bryant MD /nt
--- NOTE | 2019-02-28 18:29 | NUR ---
ASSUMED PATIENT AND CARES AT 0715, PATIENT SITTING UP IN CHAIR WOKE, A&OX4, DENIES PAIN AND DISCOMFORT, PATIENT RECLINED IN CHAIR, 2-3+ EDEMA TO BLE, BLE DISCOLORED AND RED, DRSG TO LLE C/D/I, LAC INTACT AND PATENT PER FLUSH, O2@2.5L/NC, PATIENT UNABLE TO SLEEP WITH CPAP IN PLACE, PATIENT STATED ITS NEW AND HE STILL CAN NOT GET USED TO IT, MOUTH BREATHING NOTED, SOB WITH EXERTION AND AMBULATION, SBA WITH WALKER, USES URINAL OR TOILET, HAND TREMORS NOTED, FALL PRECAUTIONS IN PLACE, PERSONAL BELONGINGS AND CALL LIGHT IN REACH, WILL CONTINUE TO MONITOR
[2019-02-28 19:30] VITALS: BP 170/90
--- NOTE | 2019-03-01 03:44 | NUR ---
ASSUMED CARE OF PATIENT AT 1900. VSS. ASSESSMENT COMPLETED AT 2100 AND IS DOCUMENTED. PT CONTINUES TO BE VERY ANXIOUS AND IMPULSIVE THROUGHOUT THE NIGHT. PT RESTING IN CHAIR THROUGHOUT THE NIGHT. O2 INCREASED TO 3L VIA NC D/T SPO2 OF 84% ON 2L. PT CHECKS SPO2 REGULARLY AT HOME AND STATED THAT IT IS TYPICALLY "89-90%". SPO2 ON 3L NC: 90%. PRN XANAX GIVEN AT HS PER PT REQUEST FOR ANXIETY. HEPARIN REFUSED; PT STATES "HE DOESN'T NEED IT". HS BLOOD GLUCOSE: 115; NO COVERAGE INSULIN NEEDED. PT CONTINUES TO HAVE SOA WITH EXERTION. BLE OPEN TO AIR. LEFT AC IV PATENT WITH ZOSYN INFUSING. IV PROTECTED WITH WASHCLOTHS AND COBAN D/T PT'S PERIODS OF CONFUSION. PT CURRENTLY SITTING IN CHAIR WATCHING TV. CALL LIGHT WITHIN REACH. CHAIR LOCKED. CHAIR ALARM ON. WCTM.
[2019-03-01 06:53] LABS: ALBUMIN 2.7 g/dL (3.4-5.0); CALCIUM 9.4 mg/dL (8.5-10.1); CREATININE 2.4 mg/dL (0.7-1.3); PHOSPHORUS 3.4 mg/dL (2.5-4.9); POTASSIUM 4.7 mmol/L (3.5-5.1)
--- NOTE | 2019-03-01 07:23 | HC ---
[facility] [place] [address] CONSULTATION Name: CHRISTIGIRISH J Room #: 227-P ADM IN M.R.#: [id number] Admission: 02/26/19 ������������������ Attend Phys: Aisha Mathews MD Discharge: ������������������ Date of : 38 Report #: [id number] THIS REPORT FOR: //name// CC: Aisha COLLADO REASON FOR CONSULTATION: Chronic kidney disease. REASON FOR PRESENTATION: Leg swelling. HISTORY OF PRESENT ILLNESS: A well-known patient to me, 78-year-old with a baseline creatinine of around 2.0, chronic kidney disease, who sees me in the clinic. He has many comorbid conditions. He is known to have heart failure, morbid obesity, diabetes mellitus, chronic venous stasis, coronary artery disease, hypothyroidism, obstructive sleep apnea with pulmonary hypertension. He presented from the wound clinic for bilateral redness, increased swelling. He has been seeing them for some time. Lately, he started to have some redness, increased in the temperature of his lower extremities. He was placed on doxycycline and ciprofloxacin; however, this has not resulted in any improvement. He was evaluated by his wound care and was sent to the hospital for intravenous antibiotic. He denies any fever or chills. He denies any chest pain or shortness of breath. Laboratory values from yesterday revealed that his creatinine is slightly above his baseline of 2. Specifically, his creatinine was 2.6. PAST MEDICAL HISTORY: Extensive and includes the followin. Chronic kidney disease. 2. Hypertension. 3. COPD. 4. Obstructive sleep apnea. 5. Cataract surgery. 6. Hypothyroidism. 7. Chronic venous stasis. 8. Emphysema. 9. Tonsillectomy. 10. Hyperlipidemia. 11. Hypertension. 12. Diabetes mellitus. 13. Liver abscess in the past. 14. Recurrent cellulitis. 15. Coronary artery disease. FAMILY HISTORY: Significant for hypertension. SOCIAL HISTORY: Denies drug or alcohol abuse. Former smoker. ALLERGIES: MORPHINE AND CODEINE. [facility] [address] [place] [address] CONSULTATION Name: GIRISH BARRAZA Room #: 227-P [facility]#: [id number] Admission: 02/26/19 ������������������ Attend Phys: Aisha Mathews MD Discharge: ������������������ Date of : 38 Report #: [id number] MEDICATIONS: 1. Levothyroxine. 2. Trulicity. 3. Terazosin. 4. Torsemide. 5. Glimepiride. 6. Mesalamine. REVIEW OF SYSTEMS: GENERAL: No fever or chills. CARDIOVASCULAR: No chest pain, but significant for shortness of breath; however, at baseline. PULMONARY: Significant for shortness of breath at baseline. GASTROINTESTINAL: No nausea or vomiting. GENITOURINARY: No frequency, no urgency. SKIN AND MUSCULOSKELETAL: As per the history of present illness. PHYSICAL EXAMINATION: GENERAL: He is alert, oriented, in no apparent distress. VITAL SIGNS: Temperature is 36.7, blood pressure is 161/84. HEAD AND NECK: No jugular venous distention, obese. Pickwickian features. CHEST: Decreased air entry bilaterally with some wheezes. CARDIOVASCULAR: Distant S1 and S2. ABDOMEN: Soft, nontender. LOWER EXTREMITIES: Extensive bilateral venous stasis changes with cellulitic changes. LABORATORY DATA: Reviewed. Creatinine is 2.6, BUN is 47. White blood cell count is 6.5, platelet is 218. ASSESSMENT, IMPRESSION AND PLAN: 1. Chronic kidney disease. 2. Cellulitis. 3. Diabetes mellitus. 4. Hypertension. 5. Morbid obesity. 6. It is expected to have some worsening of his renal function with the current cellulitic illness. Currently, being treated appropriately by the Infectious Disease team. 7. We will adjust his diuretic therapy. 8. Renal function usually stabilizes after any acute illness and this has happened with him previously where he had some worsening of his kidney function with an acute illness; however, things usually stabilize after the resolution of his acute illness. 9. [place] [address] CONSULTATION Name: BEHZAD BARRAZAD Tacos Room #: 227-P [facility] IN [facility]#: [id number] Admission: 02/26/19 ������������������ Attend Phys: Aisha Mathews MD Discharge: ������������������ Date of : 38 Report #: [id number] 10. Avoid nephrotoxins. 11. Wound care. ��������������������������������������������� <ELECTRONICALLY SIGNED> ���������������������������������������� By: Yadira Garrido MD ��������������������������������������������� 03/01/19 0723 0828 2213 Yadira Garrido, /romero
[2019-03-01 08:30] VITALS: BP 178/91
--- NOTE | 2019-03-01 13:58 | NUR ---
ASSUMED PATIENT AND CARES AT 0715, PATIENT SITTING UPRIGHT IN RECLINER, PATIENT SLEEPING OFF AND ON, O2@3L/NC, A&OX4, DENIES PAIN OR DISCOMFORT, LABORED AND MOUTH BREATHING NOTED, LAC SALINE LOCK WITH GAUZE AND COBAN WRAPPED FOR PROTECTION, PATIENT PULLING AT IV TUBING LAST NIGHT, BLE DISCOLORED AND RED, BLE EDEMA, STB WITH WALKER, SOB WITH EXERTION, INCREASED ANXIETY, FALL PRECAUTIONS IN PLACE, PERSONAL BELONGINGS AND CALL LIGHT IN REACH, WILL CONTINUE TO MONITOR
--- NOTE | 2019-03-01 14:56 | HC ---
[facility] [place] [address] CONSULTATION Name: ROBBINCADENGIRISH J Room #: 227-P ADM IN M.R.#: [id number] Admission: 02/26/19 ������������������ Attend Phys: Aisha Mathews MD Discharge: ������������������ Date of : 38 Report #: [id number] THIS REPORT FOR: //name// CC: Aisha [facility] PULMON[facility] CONSULTATION REFERRING PHYSICIAN: Dr. Mathews REASON FOR REFERRAL: Sleep apnea. HISTORY OF PRESENT ILLNESS: The patient is an 78-year-old gentleman well known to the Pulmonary service, admitted with lower extremity cellulitis. The patient has history of COPD and chronic hypoxic respiratory failure. A pulmonary consultation was requested. The patient was last seen in the office in November 2018. He has been doing fairly well. He has chronic lower extremity stasis dermatitis. [facility] When he was seen on this occasion, the patient was felt to have clinically significant cellulitis. For that reason, he was admitted. He has been dealing with cellulitis for more than a year. It is felt that the patient likely has cor pulmonale along with morbid obesity contributing to his stasis dermatitis. PAST MEDICAL HISTORY: 1. As mentioned above, COPD, severe impairment, baseline FEV1 of 1.25 liters, 42% predicted, chronic hypoxic respiratory failure requiring 2 liters of O2 24 hours a day. LACEY, on Trilogy, severe lung restriction by PFTs. 2. Morbid obesity, debility and muscle weakness. 3. Chronic lower extremity edema as mentioned above. 4. Abdominal aortic aneurysm measuring 4.5 mm in diameter, coronary artery disease, ejection fraction 65% on echocardiogram performed in 2017. Chronic kidney disease, ulcerative colitis, diabetes mellitus, hypertension, past myocardial infarction, status post permanent pacemaker placement, peripheral artery disease, seasonal allergies. PAST SURGICAL HISTORY: As mentioned above, cataract surgery, right total knee replacement and tonsillectomy. ALLERGIES: MORPHINE, WHICH CAUSES HALLUCINATIONS. HOME MEDICATIONS: List reviewed in the MAR. His medication also includes DuoNeb q.i.d. p.r.n., levothyroxine, Trulicity, trazodone, aspirin, TriCor, Hytrin, clonazepam, Mirapex, Zoloft, Januvia, Zyloprim, Amaryl, Demadex, Pepcid, Canasa, potassium supplements, Asacol, oxybutynin. [facility] [address] [place] [address] CONSULTATION Name: GIRISH BARRAZA Room #: 227-P [facility] IN [facility]#: [id number] Admission: 02/26/19 ������������������ Attend Phys: Aisha Mathews MD Discharge: ������������������ Date of : 38 Report #: [id number] FAMILY HISTORY: Both parents . SOCIAL HISTORY: The patient has smoked until 1995 after having smoked 40 years. He denies any alcohol use. He is single. REVIEW OF SYSTEMS: As mentioned above, it is notable for generalized weakness, gets around predominantly with a walker and a wheelchair. Otherwise, 10-point system review negative. PHYSICAL EXAMINATION: GENERAL: He is awake, alert, in no distress. VITAL SIGNS: Temperature is 98.6 degrees Fahrenheit, pulse is 79, respiratory rate is 18, blood pressure 168/90 mmHg, saturation 94%. HEENT: Normocephalic, atraumatic. NECK: Supple, without lymphadenopathy or thyromegaly. CHEST: Breath sounds are fair. No obvious rales or wheezes. CARDIOVASCULAR: Heart sounds are distant. No obvious murmurs or gallop. Pulses are 2+/4+ bilaterally. ABDOMEN: Obese, soft, nontender, no organomegaly or masses felt. GENITOURINARY: Deferred. RECTAL: Deferred. EXTREMITIES: There is no cyanosis or clubbing. Lower extremities notable for 3-4+ bilateral pretibial edema along with erythematous changes. NEUROLOGIC: Grossly intact. LABORATORY DATA: Portable chest x-ray shows chronic interstitial changes, appear to be chronic, cardiomegaly. Electrolytes: Sodium 144, potassium 4.4, chloride 108, CO2 32, BUN is 47, creatinine is 2.6. Liver enzymes are grossly unremarkable. Hemoglobin is 10.5. WBC 6600 and platelets are normal. Albumin 2.9. IMPRESSION: 1. Bilateral lower extremity cellulitis, stasis dermatitis, on vancomycin and Zosyn. 2. Obstructive sleep apnea, on Trilogy. 3. Chronic obstructive pulmonary disease, severe impairment, continue bronchodilators. 4. Chronic hypoxic respiratory failure, on 2 liters of oxygen. 5. Morbid obesity. 6. Coronary artery disease. 7. Peripheral artery disease. 8. Chronic heart failure. 9. Hypothyroidism. 10. Restless legs. 11. Irritable bowel syndrome. 12. Generalized debility and weakness. [facility] [address] [facility] [address] CONSULTATION Name: GIRISH BARRAZA Room #: 227-P [facility] IN M.R.#: [id number] Admission: 02/26/19 ������������������ Attend Phys: Aisha Mathews MD Discharge: ������������������ Date of : 38 Report #: [id number] 13. Medical directive, do not resuscitate. RECOMMENDATION: We will continue home Trilogy, wean O2 for saturation 98-88%. DVT and GI prophylaxis recommended. We will address the dietary modification. Plan to lose weight, if possible. Thank you for this consultation. ��������������������������������������������� <ELECTRONICALLY SIGNED> ���������������������������������������� By: Robbin Robertson MD ��������������������������������������������� 03/01/19 1456 [id number] Robbin Robertson MD /nt
[2019-03-01 18:00] VITALS: BP 173/85
--- NOTE | 2019-03-01 18:15 | NUR ---
PATIENT ARRIVED FROM SENIOR SUITES AT 1700. A/OX4, ANXIOUS, DENIES PAIN, 3.5L NC, HAND TREMORS, BILATERAL EDEMA WITH CELLULITIS. WOUND CARE COMPLETED BY SENIOR SUITES NURSE. UP WITH ASSISTANCE WITH WALKER TO BATHROOM. FREQUENCY WITH URINATION. PT CONCERNED ABOUT CLONAZAPAM. FALL PRECATIONS IN PLACE. CALL LIGHT IN REACH.
[2019-03-01 19:03] VITALS: BP 136/119
--- NOTE | 2019-03-02 03:16 | NUR ---
Pt. rested quietly at intervals during the night when checked on during frequent rounds. He does get easily anxious at times. Pt. offers no c/o pain.
[2019-03-02 07:57] VITALS: BP 158/72
--- NOTE | 2019-03-02 13:52 | NUR ---
ASSUMED CARE 0700. A/OX3, SOB ON EXERTION. TREATED LOWER EXTREMITIES WOUND CARE COMPLETED. UP WITH ASSISTANCE TO BEDSIDE COMMODE. BM TODAY. CONTINUES ON 2-4L NASAL CANULA AT THIS TIME ON 4L. ON CONTINUOS PULSE OX. 92%NC AT THIS TIME. BECOMES ANXIOUS AND SHORT OF BREATH. CALLS FOR ASSISTANCE AND CONCERNS OFTEN. PREFERS TO SIT IN RECLINER AND WILL LEAN FORWARD FOR COMFORT WITH SOA. ENCOURAGE ELVATED LE. FALL PRECAUTIONS IN PLACE. PATIENT DOES NOT LIKE CHAIR ALARM SOUNDING OFF. CALL LIGHT IN REACH.
[2019-03-02 15:27] VITALS: BP 151/76
[2019-03-02 19:38] VITALS: BP 166/77
--- NOTE | 2019-03-03 01:53 | NUR ---
ASSUMED CARE AROUND 1900. AXOX3. RIPPED OUT IV ON LFA. NOW REPLACED ON RH. HIGH ANXIETY AND RESTLESSNESS. CLONAZEPAM,SEROQUEL,TRAZODONE GIVEN. NOT EFFECTIVE. UNABLE TO TOLERATE BIPAP, BACK ON NC. WILL CONT TO MONITOR FOR ANY CHAGNES IN CONDITION.
[2019-03-03 05:21] VITALS: BP 156/78
[2019-03-03 06:08] LABS: ALBUMIN 2.6 g/dL (3.4-5.0); CALCIUM 9.1 mg/dL (8.5-10.1); CREATININE 2.2 mg/dL (0.7-1.3); PHOSPHORUS 3.7 mg/dL (2.5-4.9); POTASSIUM 4.8 mmol/L (3.5-5.1)
[2019-03-03 07:37] VITALS: BP 143/77
[2019-03-03 10:31] LABS: CALCIUM 9.4 mg/dL (8.5-10.1); CREATININE 2.4 mg/dL (0.7-1.3); POTASSIUM 4.8 mmol/L (3.5-5.1)
[2019-03-03 11:04] VITALS: BP 143/77
[2019-03-03 11:32] LABS: HCO3 27.8 mmol/L (22.0-26.0); PCO2 48.8 mmHg (35.0-45.0); PO2 67.6 mmHg (80.0-100.0); pH 7.373 (7.360-7.450); sO2 92.9 % (92.0-98.0)
[2019-03-03 15:42] VITALS: BP 132/78
--- NOTE | 2019-03-03 15:44 | HC ---
[facility] [place] [address] CONSULTATION Name: CHRISTIGIRISH J Room #: 460-P ADM IN M.R.#: [id number] Admission: 02/26/19 ������������������ Attend Phys: Aisha Mathews MD Discharge: ������������������ Date of : 38 Report #: [id number] THIS REPORT FOR: //name// CC: Aisha [facility] DATE OF SERVICE: 02/27/2019 INFECTIOUS DISEASE CONSULTATION: REASON FOR CONSULTATION: Evaluate left lower extremity skin and soft tissue infection. HISTORY OF PRESENT ILLNESS: The patient is an 78-year-old with underlying history of chronic venous stasis disease, COPD, diabetes, chronic kidney disease and venous stasis lymphedema. He has been treated for venous stasis wounds, mostly on the right leg. Over the last 3 weeks, he has had worsening symptoms involving the left leg with persistent pain, aching discomfort, worse when he is ambulating. Has had some serous drainage from his leg. No specific trauma. He has been given oral antibiotics as an outpatient without improvement. He has been on Levaquin followed by doxycycline and ciprofloxacin. No fever, chills or sweats. The outpatient cultures were from his right lower extremity wounds. No history of peripheral vascular disease. He does have underlying coronary artery disease. Uses oxygen and is very limited in his activity. In addition, he has bilateral total knee arthroplasties which were about 10 years old. He has had persistent aching pain in both knees. It fluctuates over time. Right knee had been bothering him mostly over the last month or so. Now it is pretty much equal. No nocturnal pain. Most of his discomfort is with ambulation. ALLERGIES: MORPHINE AND CODEINE. MEDICATIONS: As noted on his MAR, now on vancomycin and Zosyn. PAST MEDICAL HISTORY: Hypertension, COPD, diabetes, coronary artery disease, vertebral disk disease, bilateral total knee arthroplasties, cataract surgery, hypothyroidism, restless leg syndrome, anxiety, colitis, emphysema, obstructive sleep apnea, liver abscess, tonsillectomy, hyperlipidemia, chronic kidney disease. FAMILY HISTORY: Noncontributory. SOCIAL HISTORY: He is a past smoker. No significant alcohol intake. REVIEW OF SYSTEMS: Denies any cough or sputum production. No chest pain. No nausea, vomiting or diarrhea. No dysuria or frequency. Full 10-point review of system was negative other than what was described above. [address] [address] CONSULTATION Name: GIRISH BARRAZA Room #: 460-P [facility] IN .R.#: [id number] Admission: 02/26/19 ������������������ Attend Phys: Aisha Mathews MD Discharge: ������������������ Date of : 38 Report #: [id number] PHYSICAL EXAMINATION: VITAL SIGNS: He is afebrile and hemodynamically stable. GENERAL: He is alert and cooperative and pleasant, in no acute distress, sitting up in his bed. He was a little bit hard of hearing and he was dyspneic with any activity. EXTREMITIES: He had 2+ lower extremity edema on the left, 1+ on the right. He had venous stasis dermatitis changes. He had cellulitis from the left foot up to the proximal calf. There was no evidence of lymphangitis in the medial thigh or groin. Pulses in his foot were palpable. No other decubiti or rashes noted. On the right leg, he did have some venous stasis dermatitis with shallow ulceration. No palpable adenopathy. HEENT: Eyes, without scleral icterus. Mouth without mucositis. NECK: Supple, with no thyromegaly or mass. He was obese. LUNGS: Decreased breath sounds bilaterally with few crackles heard in the bases. HEART: Regular, without murmur, gallop or rub. ABDOMEN: Soft, obese, and nontender. No hepatosplenomegaly or mass. Cranial nerves intact. Strength in his upper and lower extremities was limited due to his obesity and body habitus. He was able to lift his legs off the bed. He is able to walk with some assistance. MOOD: Normal. BACK: Nontender. No CVA tenderness. EXTERNAL GENITALIA AND RECTAL: Not performed. LABORATORY STUDIES: Sodium 144, potassium 4.3, bicarbonate 31, creatinine 2.6, hemoglobin 9.9, platelet count 218,000, white count 6.5 with normal liver function tests. IMPRESSION: An 78-year-old with left lower extremity cellulitis complicating chronic venous stasis disease and failing outpatient oral antibiotic program. In addition, the patient has underlying diabetes, chronic kidney disease, congestive heart failure and chronic obstructive pulmonary disease. He has bilateral total knee arthroplasties with persistent pain. I do not get the sense that we are dealing with infection in the knees at this point due to no increased persistent swelling or nocturnal pain. These symptoms seemed to fluctuate over time. This has been ongoing for several years. RECOMMENDATION: We will continue with Zosyn pending further culture results. Control edema with diuresis and elevation. Await blood culture results. Obtain chest x-ray, x-ray of the knees and check inflammatory markers. Duration of his antibiotics will be determined upon his initial response. ��������������������������������������������� <ELECTRONICALLY SIGNED> ���������������������������������������� By: Pavel Trevino MD ��������������������������������������������� 03/03/19 1544 [id number] Pavel Trevino MD /nt
[2019-03-03 15:54] LABS: ABSOLUTE NEUTROPHILS 6.2 thou/uL (1.4-8.2); BASOPHILS 0.5 % (0.0-2.0); EOSINOPHILS 5.3 % (0.0-3.0); HEMATOCRIT 31.4 % (42.0-52.0); MCH 33.5 pg (26.0-34.0); MCHC 31.7 g/dL (28.0-37.0); MCV 105.5 fL (80.0-100.0); MONOCYTES 10.4 % (1.0-8.0); PLATELET COUNT 218 thou/uL (150-400); POLYS 74.8 % (36.0-66.0); RBC 2.98 mil/uL (4.50-6.00); RDW 17.6 % (10.5-14.5); WBC 8.2 thou/uL (4.0-11.0)
--- NOTE | 2019-03-03 16:56 | NUR ---
ID ADDED YOLANDA. CARE TEAM INDICATED THAT PT'S NEEDING MORE O2 HAD BEEN ON 2-4 L [employer] AND NOW NEEDING 6L. CAREGIVERS INDICATED PT ISN'T AT BASELINE. IT IS ANTICPATED THAT PT WILL DISCHARGE HOME WITH HOME HEALTH AND CAREGIVERS ONCE MEDICALLY STABLE. CM TO FOLLOW INDICATED WITH DC PLANNING.
[2019-03-03 20:03] VITALS: BP 168/89
--- NOTE | 2019-03-03 20:04 | NUR ---
ASSUMED CARE 0700. ALERT X4,ANXIETY BETTER TODAY. CELLULITIS IMPROVING. INTERMITENT RESTING TODAY. CONTINUES ON 4-6L WITH CONTINOUS O2 SAT IN PLACE. FALL PRECATIONS IN PLACE. CALLS APPROPRIATLY.
[2019-03-04 03:53] VITALS: BP 156/72
[2019-03-04 05:29] LABS: HEMATOCRIT 30.3 % (42.0-52.0); HEMOGLOBIN 9.6 gm/dL (14.0-18.0); MCH 32.5 pg (26.0-34.0); MCHC 31.8 g/dL (28.0-37.0); MCV 102.4 fL (80.0-100.0); RBC 2.95 mil/uL (4.50-6.00); RDW 16.4 % (10.5-14.5); WBC 7.2 thou/uL (4.0-11.0)
[2019-03-04 05:46] LABS: ALBUMIN 2.4 g/dL (3.4-5.0); CREATININE 2.1 mg/dL (0.7-1.3); PHOSPHORUS 3.5 mg/dL (2.5-4.9); POTASSIUM 4.4 mmol/L (3.5-5.1)
--- NOTE | 2019-03-04 06:31 | NUR ---
PATIENT ALERT AND ORIENTED X4. DENIES PAIN. LEGS EDEMATOUS AND DISCOLORED. SLEPT IN CHAIR. CPAP ON SOME OF THE NIGHT. O2 LOWERED FROM 6L TO 4L. O2 SAT IN THE LOWER 90'S. LEGS ELEVATED AT TIMES BUT PATIENT STATES IS HARD FOR HIM TO BREATHE WITH LEGS UP. SLEPT LITTLE THIS SHIFT.
[2019-03-04 07:05] VITALS: BP 113/97
--- NOTE | 2019-03-04 09:51 | NUR ---
WOUND FOLLOW UP: PT. WAS SEEN ON 03/03/19 BY JUSTUS CAMERON AND MYSELF. PT. CELLULITIS IS RESOLVED AT THIS TIME AND PT. IS READY FOR LYMPEDEMA WRAPS. RECOMMENDATIONS: CONTINUE WITH CURRENT PLAN OF CARE. PT. AND STAFF NURSE WERE INSTRUCTED ON PLAN OF CARE.
--- NOTE | 2019-03-04 10:39 | NUR ---
WOUND FOLLOW UP: PT. WAS SEEN TODAY BY DR. RAMIREZ AND MYSELF. PT. HAS NO CLINICALLY CHANGES TO REPORT AT THIS TIME. AWAITING FOR LYMPEDEMA WRAPS TO BILATERAL LOWER EXTREMITYS. RECOMMENDATIONS: CONTINUE WITH CURRENT PLAN OF CARE. PT. AND STAFF NURSE WERE INSTRUCTED ON PLAN OF CARE.
[2019-03-04 14:43] VITALS: BP 145/93
[2019-03-04 15:22] VITALS: BP 161/84
--- NOTE | 2019-03-04 16:18 | NUR ---
CARE TEAM INDICATED THAT PT IS MEDCIALLY STABLE TO DISCHARGE HOME THIS DAY. PT IS TO HAVE [facility]. THEY ARE AWARE AND WILL INITIATE SERVICES UPON DC. PT HAS ALL RECOMMENDED DME FOR HOME USE. PT'S CAREGIVERS WILL RESUME. NO OTHER CM INTERVENTION INDICATED AT THIS TIME. CASE CLOSED.
[2019-03-04] MEDS ORDERED: DOXYCYCLINE 10100 MG PO (17:14)
--- NOTE | 2019-03-04 19:47 | NUR ---
PROGRESSING TOWARDS GOALS, ANXIETY LESS TODAY. CHESTXRAY COMPLETED. LE WOUNDS/CELLULITIS IMPROVING. PT DC HOME WITH SON AND HOME HEALTH. PT TOOK ELECTRIC WHEELCHAIR AND ALL BELONGINGS WITH HIM.
== END 2019-03-04 19:45 | disposition home health service (06) | DRG 602 ==
LOC: 4W 15:41 → SICU 02-27 15:14 → 4W 03-01 17:03
PROVIDERS: Hospitalist; Internal Medicine Pulmonary Disease; Nurse Practitioner; Specialist; ADMIT Internal Medicine
PROC: 5A09357 Assistance with Respiratory Ventilation, Less than 24 Consecutive Hours, Continuous Positive Airway Pressure (ICD-10-PCS; principal; 2019-02-27)
PROC: 5A09357 Assistance with Respiratory Ventilation, Less than 24 Consecutive Hours, Continuous Positive Airway Pressure (ICD-10-PCS; 2019-03-01)
DX: L03.116 Cellulitis of left lower limb (principal); E43 Unspecified severe protein-calorie malnutrition; N18.4 Chronic kidney disease, stage 4 (severe); Z68.44 Body mass index [BMI] 60.0-69.9, adult; I13.0 Hypertensive heart and chronic kidney disease with heart failure and stage 1 through stage 4 chronic kidney disease, or unspecified chronic kidney disease; J96.11 Chronic respiratory failure with hypoxia; N17.9 Acute kidney failure, unspecified; L03.211 Cellulitis of face; G45.1 Carotid artery syndrome (hemispheric); I27.81 Cor pulmonale (chronic); I87.8 Other specified disorders of veins; I50.9 Heart failure, unspecified; I87.2 Venous insufficiency (chronic) (peripheral); T44.3X5A Adverse effect of other parasympatholytics [anticholinergics and antimuscarinics] and spasmolytics, initial encounter; I27.20 Pulmonary hypertension, unspecified; E78.00 Pure hypercholesterolemia, unspecified; F17.210 Nicotine dependence, cigarettes, uncomplicated; Z66 Do not resuscitate; M10.9 Gout, unspecified; G47.33 Obstructive sleep apnea (adult) (pediatric); E11.22 Type 2 diabetes mellitus with diabetic chronic kidney disease; E66.01 Morbid (severe) obesity due to excess calories; L03.115 Cellulitis of right lower limb; E11.51 Type 2 diabetes mellitus with diabetic peripheral angiopathy without gangrene; K58.9 Irritable bowel syndrome, unspecified; I89.0 Lymphedema, not elsewhere classified; I25.10 Atherosclerotic heart disease of native coronary artery without angina pectoris; E03.9 Hypothyroidism, unspecified; G25.81 Restless legs syndrome; F41.9 Anxiety disorder, unspecified; E78.5 Hyperlipidemia, unspecified; J43.9 Emphysema, unspecified; Z96.653 Presence of artificial knee joint, bilateral; Z79.84 Long term (current) use of oral hypoglycemic drugs; Z88.5 Allergy status to narcotic agent; Z98.49 Cataract extraction status, unspecified eye; Z82.49 Family history of ischemic heart disease and other diseases of the circulatory system; Z95.5 Presence of coronary angioplasty implant and graft; Z99.81 Dependence on supplemental oxygen; Y92.89 Other specified places as the place of occurrence of the external cause
CPT/HCPCS: 10045; 10047; 15002

== ENCOUNTER → 2019-02-26 | Outpatient (CLI) | payer OTHER | LOC: HYPER 06:56 | DX: I87.332 Chronic venous hypertension (idiopathic) with ulcer and inflammation of left lower extremity (principal); L97.221 Non-pressure chronic ulcer of left calf limited to breakdown of skin; L97.812 Non-pressure chronic ulcer of other part of right lower leg with fat layer exposed; R60.1 Generalized edema; I25.10 Atherosclerotic heart disease of native coronary artery without angina pectoris; L03.116 Cellulitis of left lower limb; M10.9 Gout, unspecified; J44.9 Chronic obstructive pulmonary disease, unspecified; F41.9 Anxiety disorder, unspecified; F32.9 Major depressive disorder, single episode, unspecified; Z96.653 Presence of artificial knee joint, bilateral; Z95.0 Presence of cardiac pacemaker; Z87.891 Personal history of nicotine dependence ==